=== PATIENT | male | born 1950 | race Caucasian/White ===

== ENCOUNTER 2017-12-31 14:08 | Emergency (ER) | payer MEDICARE ==
[2017-12-31 14:26] VITALS: BP 140/84
--- NOTE | 2017-12-31 16:14 | ED Physician Documentation ---
History of Present Illness - Stated complaint Stated Complaint: SWOLLEN ARM - Chief complaint Chief Complaint: Ext Problem - Additonal information Additional information: hx from pt 66 male thinks he may have a large thorn in his R FA Review of Systems Skin: reports: Other (R FA swelling) PD PAST MEDICAL HISTORY - Present Medications Home Medications: Ambulatory Orders Medication Instructions Recorded Confirmed Atorvastatin Calcium 10 mg PO DAILY 12/31/17 12/31/17 Lisinopril/Hydrochlorothiazide 1 each PO DAILY 12/31/17 12/31/17 [Lisinopril-Hctz 10-12.5 mg Tab] raNITIdine [Zantac] 150 mg PO DAILY 12/31/17 12/31/17 - Allergies Allergies/Adverse Reactions: Allergies Allergy/AdvReac Type Severity Reaction Status Date / Time No Known Drug Allergies Allergy Verified 12/31/17 14:26 PD ED PE NORMAL - Vitals Vital signs reviewed: Yes - Extremities Extremities: Other (R FA small STS with central puncture, no palp FB, no erythema or streaking) Results - Vitals Vitals: Vital Signs - 24 hr 12/31/17 14:24 Temperature 36.6 C Heart Rate 88 Respiratory 18 Rate Blood Pressure 140/84 H O2 Saturation 100 Oxygen O2 Source Room air PD MEDICAL DECISION MAKING - ED course ED course: looked with sono as well - 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 and he looked as well - we did not find any subcut FB or see any shadowing to suggest same he is reassured, we agreed not to incide and search given that cannot locate or feel any FB could just have had a puncture from the thorn with local STS as well - Sepsis Event Vital Signs: Vital Signs - 24 hr 12/31/17 14:24 Temperature 36.6 C Heart Rate 88 Respiratory 18 Rate Blood Pressure 140/84 H O2 Saturation 100 Oxygen O2 Source Room air Departure - Departure Disposition: 01 Home, Self Care Clinical Impression: Puncture wound Condition: Good Comments: I cannot see, palpate, or locate with ultrasound any foreign body under the skin. It is possible there is something deep in the tissue But right now, the swelling seems to be subsiding and I do not think cutting the arm and searching around is a good idea. Recommend we wait and watch - hopefully it will just clear up. If the symptoms worsen, come back
== END 2017-12-31 16:24 | disposition home or self-care (01) ==
LOC: ED 14:08
DX: S51.831A Puncture wound without foreign body of right forearm, initial encounter (principal); W26.8XXA Contact with other sharp object(s), not elsewhere classified, initial encounter
CPT/HCPCS: 99282

== ENCOUNTER 2018-07-28 12:45 | Emergency (ER) | payer MEDICARE ==
--- NOTE | 2018-07-28 15:03 | ED Physician Documentation ---
PD HPI HEENT - Stated complaint Stated Complaint: DIZZY - Chief complaint Chief Complaint: Neuro - History obtained from History obtained from: Patient - History of Present Illness Timing - onset: How many weeks ago (2) Timing - duration: Weeks (2) Timing - details: Still present (has had feeling of lightheaded, not quite distinct vertigo, with changing position/getting up in the past 2 weeks. More consistent the past few days. Feels okay once in steady position.), Intermittant Location: Sinuses (has had feeling of pressure/congestion in sinuses/behind eyes.) Worsens: Position (changing position mainly, notes it when gets up in the morning particularly. Feeling of off balance and some movement but not distinct room spinning. Almost lightheaded feeling but not really feeling pre-syncope per se. Only notes it with position change. Denies underhydration.) Similar symptoms before: Diagnosis (has had vertigo in the past, but the current symptoms do not have the distinct room spinning feeling.) Recently seen: Not recently seen Review of Systems Constitutional: denies: Fever, Chills Eyes: denies: Decreased vision Ears: denies: Ear pain, Drainage/discharge Nose: reports: Congestion, Sinus pressure / pain. denies: Rhinorrhea / runny nose Throat: denies: Sore throat Cardiac: denies: Chest pain / pressure, Palpitations Respiratory: denies: Cough Skin: denies: Rash, Lesions Neurologic: denies: Focal weakness, Numbness, Near syncope, Altered mental status, Headache PD PAST MEDICAL HISTORY - Past Medical History Cardiovascular: None Respiratory: None Neuro: None Endocrine/Autoimmune: None - Past Surgical History Past Surgical History: No - Present Medications Home Medications: Ambulatory Orders Medication Instructions Recorded Confirmed Atorvastatin Calcium 10 mg PO DAILY 12/31/17 12/31/17 Lisinopril/Hydrochlorothiazide 1 each PO DAILY 12/31/17 12/31/17 [Lisinopril-Hctz 10-12.5 mg Tab] raNITIdine [Zantac] 150 mg PO DAILY 12/31/17 12/31/17 Cetirizine [ZyrTEC] 10 mg PO DAILY #15 tablet 07/28/18 Dexamethasone [Decadron] 4 mg PO DAILY #5 tablet 07/28/18 Meclizine [Antivert] 25 mg PO Q6H PRN #30 tablet 07/28/18 - Allergies Allergies/Adverse Reactions: Allergies Allergy/AdvReac Type Severity Reaction Status Date / Time No Known Drug Allergies Allergy Verified 07/28/18 13:09 - Social History Does the pt smoke?: No Smoking Status: Never smoker Does the pt drink ETOH?: No Does the pt have substance abuse?: No - Immunizations Immunizations are current?: Yes - POLST Patient has POLST: No PD ED PE NORMAL - Vitals Vital signs reviewed: Yes - General General: Alert and oriented X 3, No acute distress, Well developed/nourished - HEENT HEENT: PERRL, EOMI (no notable nystagmus, but not feeling dizzy at the moment. ), Ears normal, Moist mucous membranes, Pharynx benign - Neck Neck: Supple, no meningeal sign, No adenopathy - Cardiac Cardiac: RRR, No murmur - Respiratory Respiratory: Clear bilaterally - Derm Derm: Normal color, Warm and dry - Extremities Extremities: No deformity, No tenderness to palpate, Normal ROM s pain, No edema, No calf tenderness / cord - Neuro Neuro: Alert and oriented X 3, insurance administrative assistant 2-12 intact, No motor deficit, No sensory deficit, Normal speech Results - Vitals Vitals: Oxygen O2 Source Room air - EKG (time done) 13:08 Rate: Rate (enter#) (70) Rhythm: NSR [place]: Normal Intervals: Normal [place] QRS: Normal Ischemia: Normal ST segments. No: ST elevation c/w ischemia, ST depression Computer interpretation: Agree with computer - Labs Labs: Laboratory Tests 07/28/18 07/28/18 07/28/18 13:11 16:01 16:01 WBC 7.8 RBC 4.46 L Hgb 14.2 Hct 42.3 MCV 95.0 H MCH 31.9 H MCHC 33.6 RDW 12.6 Plt Count 153 MPV 9.5 Neut # (Auto) 4.6 Lymph # (Auto) 2.4 [place] # (Auto) 0.7 Eos # (Auto) 0.1 Baso # (Auto) 0.0 Absolute Nucleated RBC 0.01 Nucleated RBC % 0.1 Sodium 137 Potassium 4.0 Chloride 101 Carbon Dioxide 29 Anion Gap 7.0 BUN 29 H Creatinine 1.1 Estimated GFR (MDRD) 67 L Glucose 103 H POC Whole Bld Glucose 100 Calcium 9.5 Magnesium 2.1 Total Bilirubin 1.1 H AST 26 ALT 27 Alkaline Phosphatase 45 Total Protein 7.3 Albumin 4.3 Globulin 3.0 Albumin/Globulin Ratio 1.4 Lipase 63 H PD MEDICAL DECISION MAKING - ED course Complexity details: reviewed results, considered differential, d/w patient Departure - Departure Disposition: 01 Home, Self Care Clinical Impression: Light-headedness, Dizziness Condition: Stable Record reviewed to determine appropriate education?: Yes Instructions: ED Vertigo Unspecified Follow-Up: PAUL SANCHEZ [Primary Care Provider] - Prescriptions: Cetirizine [ZyrTEC] 10 mg PO DAILY #15 tablet Dexamethasone [Decadron] 4 mg PO DAILY #5 tablet Meclizine [Antivert] 25 mg PO Q6H PRN #30 tablet PRN Reason: Vertigo Comments: Your blood count and electrolytes are good. Your blood sugar is normal as well on blood tests. I think this sounds like some inflammation in the sinuses and in her ear given you the lightheaded/dizziness type symptoms. Treated with cetirizine antihistamine daily for the next week or 2. Decadron steroid anti- inflammatory daily for the next 5 days. Use meclizine if needed for dizziness symptoms. Tylenol or ibuprofen if needed for pains or fevers. Recheck if not improving over the next few days to week. Discharge Date/Time: 07/28/18 16:46
[2018-07-28] MEDS ORDERED: MECLIZINE 12.5 MG TABLET PO STA (15:23)
[2018-07-28] MEDS ORDERED: DEXAMETHASONE 10 MG/ML VIAL PO STA (15:23)
[2018-07-28 15:36] VITALS: BP 141/95
[2018-07-28 16:05] LABS: BASOPHILS % (AUTO) 0.6 %; EOSINOPHILS # (AUTO) 0.1 10^3/uL (0.0-0.7); EOSINOPHILS % (AUTO) 0.8 %; HGB - HEMOGLOBIN 14.2 g/dL (14.0-18.0); LYMPHOCYTES # (AUTO) 2.4 10^3/uL (1.5-3.5); LYMPHOCYTES % (AUTO) 30.4 %; MEAN CORPUSCULAR HEMOGLOBIN 31.9 pg (27.0-31.0); MEAN CORPUSCULAR HGB CONC 33.6 g/dL (32.0-36.0); MEAN PLATELET VOLUME 9.5 fL (7.4-11.4); MONOCYTES # (AUTO) 0.7 10^3/uL (0.0-1.0); MONOCYTES % (AUTO) 9.1 %; NEUTROPHILS # (AUTO) 4.6 10^3/uL (1.5-6.6); NEUTROPHILS % (AUTO) 59.1 %; PLT - PLATELET COUNT 153 10^3/uL (130-450); RED BLOOD COUNT 4.46 10^6/uL (4.70-6.10); RED CELL DISTRIBUTION WIDTH 12.6 % (12.0-15.0); WHITE BLOOD COUNT 7.8 x10^3/uL (4.8-10.8)
[2018-07-28 16:18] LABS: ALBUMIN 4.3 g/dL (3.2-5.5); ALBUMIN/GLOBULIN RATIO 1.4 (1.0-2.2); BILIRUBIN,TOTAL 1.1 mg/dL (0.2-1.0); CALCIUM 9.5 mg/dL (8.5-10.3); CREATININE 1.1 mg/dL (0.6-1.2); MAGNESIUM 2.1 mg/dL (1.7-2.8); TOTAL PROTEIN 7.3 g/dL (6.7-8.2)
== END 2018-07-28 16:46 | disposition home or self-care (01) ==
LOC: ED 12:45
DX: R42 Dizziness and giddiness (principal); J34.89 Other specified disorders of nose and nasal sinuses
CPT/HCPCS: 36415; 80053; 83690; 83735; 85025; 93005; 99283; A9270